=== PATIENT | male | born 2000 | race Caucasian/White ===

== ENCOUNTER 2018-03-09 10:06 | Day surgery (SDC) | payer OTHER ==
[~2018-03-09] VITALS: Ht 175.3 cm; Wt 75.8 kg
[~2018-03-09 10:06] MED LIST: BUPR150ER
[2018-03-09] MEDS ORDERED: FLUO10 (10:59)
[2018-03-09] MEDS ORDERED: ATOM60 (10:59)
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
--- NOTE | 2018-03-09 15:39 | NUR ---
03/09/18 1539 Lima Robert V 4MG IV ZOFRAN GIVEN FOR NAUSEA AND 4MG IV DECADRON GIVEN FOR NAUSEA PER ANESTHESIOLOGIST.
--- NOTE | 2018-03-09 16:40 | NUR ---
03/09/18 Deborah Jay PATIENT STATES THAT HIS PAIN IS A 5/10 AND THAT IT IS TOLERABLE. SISTER IN ROOM, TOLERATING PO FOODS/FLUIDS. VSS. DISCHARGE INSTRUCTIONS GIVEN AND EXPLAINED. NO QUESTIONS PER PATIENT OR FAMILY.
== END 2018-03-09 17:03 | disposition home or self-care (01) ==
LOC: ORSCSDS 10:06
PROVIDERS: Orthopaedic Surgery
PROC: 0QSN34Z Reposition Right Metatarsal with Internal Fixation Device, Percutaneous Approach (ICD-10-PCS; principal; 2018-03-09 12:00)
DX: S62.334A Displaced fracture of neck of fourth metacarpal bone, right hand, initial encounter for closed fracture (principal); S62.306A Unspecified fracture of fifth metacarpal bone, right hand, initial encounter for closed fracture
CPT/HCPCS: J0690; J1100; J1885; J2250; J2405; J2710; J3010; J7120

== ENCOUNTER 2018-03-22 12:23 | Emergency (ER) | payer OTHER ==
[~2018-03-22] VITALS: Ht 175.3 cm; Wt 74.8 kg
[~2018-03-22 12:23] MED LIST changes: +ATOM60; +FLUO10
[2018-03-22] MEDS ORDERED: Strattera80 MG PO (12:52)
[2018-03-22] MEDS ORDERED: Prozac20 MG (12:52)
[2018-03-22] MEDS ORDERED: Hydrocodone-Ap1 EA23 PO (12:52)
[2018-03-22] MEDS ORDERED: Oxycodone-Apap1 EAC3 PO (12:53)
[2018-03-22 13:36] LABS: BASOPHILS ABSOLUTE AUTO 0.05 K/mm3 (0.00-0.23); BASOPHILS PERCENT AUTO 1 % (0-2); EOSINOPHILS ABSOLUTE AUTO 0.15 K/mm3 (0.00-0.68); EOSINOPHILS PERCENT AUTO 2 % (0-6); Hematocrit 41.7 % (37.0-53.0); Hemoglobin 14.7 g/dL (13.5-17.5); IMMATURE GRAN ABSOLUTE AUTO 0.02 K/mm3 (0.00-0.10); IMMATURE GRAN PERCENT AUTO 0 % (0-1); LYMPHOCYTES PERCENT AUTO 20 % (21-46); MONOCYTES ABSOLUTE AUTO 0.46 K/mm3 (0.16-1.47); MONOCYTES PERCENT AUTO 5 % (4-13); Mean Corpuscular HGB 30.8 pg (26.0-34.0); Mean Corpuscular HGB Conc 35.3 g/dL (31.5-36.5); Mean Corpuscular Volume 87 fL (80-100); Mean Platelet Volume 9.7 fL (9.1-12.4); NEUTROPHILS ABSOLUTE AUTO 7.12 K/mm3 (1.96-9.15); NEUTROPHILS PERCENT AUTO 74 % (41-73); Platelet Count 317 K/mm3 (150-400); RDW Coefficient Variation 11.5 % (11.7-14.2); RDW Standard Deviation 37.2 fL (35.1-46.3); Red Blood Cell Count 4.77 M/mm3 (4.30-5.90)
[2018-03-22 13:49] LABS: Alanine Aminotransfer (ALT/SGP 27 U/L (12-78); Albumin, Blood 4.3 g/dL (3.4-5.0); Albumin/Globulin Ratio 1.3 (0.8-1.8); Alk Phos 106 U/L (58-237); Anion Gap 8 mmol/L (6-16); Aspartate Aminotrans (AST/SGOT 19 U/L (12-37); Bilirubin, Total 0.3 mg/dL (0.1-1.0); Blood Urea Nitrogen 12 mg/dL (8-21); Bun/Creatinine Ratio 11.4 (12.0-20.0); CO2, Blood 26 mmol/L (21-32); Calcium, Blood 9.2 mg/dL (8.5-10.1); Chloride, Blood 107 mmol/L (98-108); Creatinine, Blood 1.05 mg/dL (0.60-1.20); Globulin, Blood 3.4 g/dL (2.2-4.0); Glomerular Filtration Rate >60 (60-); Glucose, Blood 91 mg/dL (70-99); Potassium, Blood 3.8 mmol/L (3.5-5.5); Sodium, Blood 141 mmol/L (136-145); Total Protein, Blood 7.7 g/dL (6.4-8.2)
[2018-03-22 14:28] LABS: Appearance, Urine Turbid (Clear); Bilirubin, Urine Neg (Neg); Blood, Urine Neg (Neg); Color, Urine Yellow (P-Yellow); Glucose Qualitative, Urine Neg (Neg); Ketones, Urine Neg (Neg); Leukocyte Esterase, Urine Neg (Neg); Nitrite, Urine Neg (Neg); Protein, Urine Neg (Neg); Specific Gravity, Urine 1.015 (1.003-1.022); Urobilinogen, Urine NORM (Normal)
[2018-03-22 14:57] LABS: Amorphous Heavy (0-Heavy); Bacteria Not Seen /hpf; Red Blood Cells, Urine Not Seen /hpf (0-2); Squamous Epithelial Cells Not Seen /hpf (Few); White Blood Cells, Urine Not Seen /hpf (0-5)
[2018-03-22] MEDS ORDERED: Vibramycin100 MG PO (15:50)
== END 2018-03-22 16:51 | disposition home or self-care (01) ==
LOC: ER 12:23
PROVIDERS: Emergency Medicine; Physician Assistant
DX: N50.819 Testicular pain, unspecified (principal); R36.9 Urethral discharge, unspecified; R10.30 Lower abdominal pain, unspecified; R30.0 Dysuria; F17.210 Nicotine dependence, cigarettes, uncomplicated; Z79.899 Other long term (current) drug therapy; Z88.8 Allergy status to other drugs, medicaments and biological substances
CPT/HCPCS: 76870; 80053; 81001; 83690; 85025; 96365; 96375; 99284-25; J0696; J1885

== ENCOUNTER 2018-04-03 11:39 | Emergency (ER) | payer OTHER ==
[~2018-04-03] VITALS: Ht 175.3 cm; Wt 70.8 kg
[~2018-04-03 11:39] MED LIST changes: +Hydrocodone-Ap1 EA23 PO; +Oxycodone-Apap1 EAC3 PO; +Prozac20 MG; +Strattera80 MG PO; +Vibramycin100 MG PO
[2018-04-03] MEDS ORDERED: FLUO10 PO (12:25)
[2018-04-03] MEDS ORDERED: ONDA4ODT MM (12:25)
[2018-04-03] MEDS ORDERED: Monodox100 MG PO (13:55)
[2018-04-03] MEDS ORDERED: IBUP800 PO (13:55)
[2018-04-03] MEDS ORDERED: Prednisone20 MG PO (13:55)
[2018-04-06 02:08] LABS: CHLAMYDIA TRACHOMATIS, NAA Negative (Negative); NEISSERIA GONORRHOEAE, NAA Negative (Negative)
== END 2018-04-03 14:13 | disposition home or self-care (01) ==
LOC: ER 11:39
PROVIDERS: Physician Assistant
DX: J20.9 Acute bronchitis, unspecified (principal); Z88.8 Allergy status to other drugs, medicaments and biological substances; Z79.899 Other long term (current) drug therapy; F17.210 Nicotine dependence, cigarettes, uncomplicated
CPT/HCPCS: 71046; 87491; 87591; 99283-25